=== PATIENT | female | born 1985 | race Two or more races ===

== ENCOUNTER 2021-10-25 16:53 | Emergency (ER) | payer BC, OTHER ==
[2021-10-25 17:22] VITALS: BP 151/92; PULSE 110; TEMP 100; BMI 29.2
[2021-10-25] MEDS ORDERED: ACETAMINOPHEN 325 MG TABLET (FP) PO ONE (17:47)
[2021-10-25] MEDS ORDERED: ACETAMINOPHEN 325 MG TABLET (FP) ONE (18:07)
[2021-10-27 14:08] LABS: SARS-CoV-2 NAA Not Detected (Not Detected)
== END 2021-10-25 18:15 | disposition home or self-care (01) ==
LOC: FER 16:53
DX: J06.9 Acute upper respiratory infection, unspecified (principal)
CPT/HCPCS: 99283-25; C9803; U0003; U0005

== ENCOUNTER 2024-09-10 13:02 | Emergency (ER) | payer BC, OTHER ==
[2024-09-10 13:25] VITALS: BP 143/92; PULSE 92; RESP 18; TEMP 98.8; BMI 24.9
[2024-09-10] MEDS ORDERED: METOCLOPRAMIDE HCL INJECTION 10 MG/2 ML VIAL ONE (14:40)
[2024-09-10] MEDS ORDERED: ACETAMINOPHEN INJECTION 100 ML ONE (14:40)
[2024-09-10] MEDS: ACETAMINOPHEN 1000 MG/100 ML BAG IVPB ONE (14:56)
[2024-09-10] MEDS: SODIUM CHLORIDE 500 ML IV STA (14:56)
[2024-09-10] MEDS: METOCLOPRAMIDE HCL INJECTION 10 MG/2 ML VIAL IVPUSH ONE (15:02)
[2024-09-10 15:35] LABS: HCG,QUALITATIVE URINE NEGATIVE
[2024-09-10 15:43] LABS: URIC ACID CRYSTALS FEW /hpf (NONE SEEN)
[2024-09-10 15:45] LABS: HEMATOCRIT 39.2 % (32.4-45.2); HEMOGLOBIN 12.9 G/dL (10.7-15.3); MCH 28.6 pg (25.7-33.7); MCHC 32.8 g/dl (32.0-36.0); MEAN CELL VOLUME 87.1 fl (80-96); MEAN PLT VOLUME 9.4 fl (7.5-11.1); PLATELET COUNT 238.3 10^3/uL (134-434); RDW 14.6 % (11.6-15.6); WHITE BLOOD COUNT 6.9 10^3/uL (4.0-10.8)
[2024-09-10 16:31] LABS: ALBUMIN 4.4 g/dl (3.4-5.0); BILIRUBIN,TOTAL 0.6 mg/dl (0.2-1); CALCIUM 9.5 mg/dl (8.5-10.1); CREATININE 0.8 mg/dl (0.6-1.3); POTASSIUM 3.9 mmol/L (3.5-5.1); TOT PROT 6.9 g/dl (6.4-8.2)
[2024-09-10 16:55] LABS: PLATELET ESTIMATE ADEQUATE
== END 2024-09-10 17:02 | disposition home or self-care (01) ==
LOC: FER 13:02
PROC: 3E033NZ Introduction of Analgesics, Hypnotics, Sedatives into Peripheral Vein, Percutaneous Approach (ICD-10-PCS; principal; 2024-09-10)
PROC: 3E033GC Introduction of Other Therapeutic Substance into Peripheral Vein, Percutaneous Approach (ICD-10-PCS; 2024-09-10)
PROC: 3E0337Z Introduction of Electrolytic and Water Balance Substance into Peripheral Vein, Percutaneous Approach (ICD-10-PCS; 2024-09-10)
DX: R11.2 Nausea with vomiting, unspecified (principal); R09.81 Nasal congestion; R10.9 Unspecified abdominal pain
CPT/HCPCS: 36415; 80053; 81003; 81015; 83690; 84703; 85027; 99284-25; J0131